=== PATIENT | male | born 1980 | race Caucasian/White ===

== ENCOUNTER 2017-03-05 15:58 | Emergency (ER) | payer OTHER ==
[~2017-03-05] VITALS: Ht 177.8 cm; Wt 92.0 kg
[2017-03-05 16:04] VITALS: BP 128/79; PULSE 83; RESP 18; TEMP 97.6; O2SAT 98
--- NOTE | 2017-03-05 16:21 | PD ---
HPI Chief Complaint: Skin Problem Time Seen by Provider: 16:19 Travel History International Travel<30 days: No Contact w/Intl Traveler<30days: No Traveled to known affect area: No History of Present Illness HPI Patient is a 36 year old male presents to the ER for evaluation of left hand pain and swelling. Patient states he was working some metal when it came off a machine and hit him in the left hand on the dorsum near the thumb. States last tetanus was unknown. Denies fevers, denies IVDU, states the pain and swelling gradually worsening. he states that he swabbed his hand with alcohol yesterday and attempted to drain it himself with a razor blade and had minimal drainage. PFSH Past Medical History Medical History: Denies Significant Hx Diminished Hearing: No Tetanus Vaccination: Unknown Influenza Vaccination: No Past Surgical History Surgical History: No Previous Surgery Social History Alcohol Use: No Tobacco Use: Yes (1 PPD) Substance Use: No Allergies-Medications (Allergen,Severity, Reaction): Coded Allergies: No Known Allergies (Unverified , 03/05/17) Reported Meds & Prescriptions Reported Meds & Active Scripts Active Ultram (Tramadol HCl) 50 Mg Tab 50 Mg PO Q6H PRN Bactrim DS (Sulfamethoxazole-Trimethoprim) 800-160 Mg Tab 1 Tab PO BID Keflex (Cephalexin) 500 Mg Cap 500 Mg PO Q6H 7 Days Review of Systems Except as stated in HPI: all other systems reviewed are Neg Physical Exam Narrative GENERAL: WD/WN and in nad. SKIN: Warm and dry. THere is a grape sized abscess to the left hand dorsum and the base of the fifth metacarpal. Non-pulsatile, excoriation present where patient describes he cut himself. minimal surrounding cellulitis and non specific edema of the dorsum of the hand only. HEAD: Normocephalic. EYES: No scleral icterus. No injection or drainage. NECK: Supple, trachea midline. No JVD or lymphadenopathy. CARDIOVASCULAR: Regular rate and rhythm without murmurs, gallops, or rubs. RESPIRATORY: Breath sounds equal bilaterally. No accessory muscle use. GASTROINTESTINAL: Abdomen soft, non-tender, nondistended. MUSCULOSKELETAL: No cyanosis, or edema. ROM intact but somewhat tender. BACK: Nontender without obvious deformity. No CVA tenderness. Data Data Last Documented VS Vital Signs Date Time Temp Pulse Resp B/P Pulse Ox O2 Delivery O2 Flow Rate FiO2 03/05/17 16:04 97.6 83 18 128/79 98 Orders Wrist, Complete ([id number]) (03/05/17 ) Lidocaine 1% Inj (50 Ml) (Xylocaine 1% I (03/05/17 16:30) [id number] (Booster) Inj (Boostrix (03/05/17 16:30) Lidocaine Pf 1% Inj (Xylocaine-Mpf 1% In (03/05/17 16:30) Lidocai-Epi 1%-1:100,000 Inj (Xylocaine- (03/05/17 17:00) Acetaminophen (Tylenol) (03/05/17 17:30) Wound Culture And Gram Stain (03/05/17 17:28) MDM Medical Decision Making Medical Screen Exam Complete: Yes Emergency Medical Condition: Yes Differential Diagnosis Abscess, cellulitis, retained FB Narrative Course Patient roomed in ED, xray shows no FB and no bony abnormality, abscess is amenable to ER drainage. Drained by Christen HINES. pain medicine given and patient counseled on s/s that suggest worsening and return to ED criteria and symptomatic management. Diagnosis Primary Impression: Abscess of hand, left Med/Other Pt SpecificInfo: Prescription(s) given Scripts Tramadol (Ultram)50 Mg Tab50 Mg PO Q6H PRN (PAIN) #10 TAB Ref 0 Prov:Migel Monterroso MD 03/05/17 Sulfamethoxazole-Trimethoprim (Bactrim DS)800-160 Mg Tab1 Tab PO BID #14 TAB Ref 0 Prov:Migel Monterroso MD 03/05/17 Cephalexin (Keflex)500 Mg [id number] Mg PO Q6H 7 Days Ref 0 Prov:Migel Monterroso MD 03/05/17 Disposition: 01 DISCHARGE HOME Condition: Stable Miegl Monterroso MD Mar 05, 2017 16:21
[2017-03-05] MEDS ORDERED: LIDOCAINE HCL 1% 50 ML VIAL INFIL ONE (16:30)
[2017-03-05] MEDS ORDERED: DIPHTH/TETANUS/ACEL PERTUSSIS (BOOSTER) 0.5 ML VIAL/PFS IM ONE (16:30)
[2017-03-05] MEDS ORDERED: LIDOCAINE HCL 1% PF 30 ML VIAL INFIL ONE (16:30)
[2017-03-05] MEDS ORDERED: LIDOCAINE 1%/EPINEPHrine 1:100,000 SOLN 20 ML VIAL INFIL ONE (16:45)
[2017-03-05] MEDS ORDERED: LIDOCAINE 1%/EPINEPHrine 1:100,000 SOLN 30 ML VIAL INFIL ONE (17:00)
[2017-03-05] MEDS ORDERED: BACT800T5 PO (17:24)
[2017-03-05] MEDS ORDERED: CEPH-460 PO (17:24)
--- NOTE | 2017-03-05 17:24 | PD ---
Physical Exam Narrative See full H&P by Dr. Monterroso. I performed incision and drainage of abscess to left hand. 1.5 cm abscess to left hand with fluctuant center. Area was prepped with Betadine. Infiltrated with 1 mL of 1% lidocaine. Incised with #11 blade. A small amount of purulent drainage expressed. Patient tolerated procedure well. Wound culture obtained. Data Data Last Documented VS Vital Signs Date Time Temp Pulse Resp B/P Pulse Ox O2 Delivery O2 Flow Rate FiO2 03/05/17 16:04 97.6 83 18 128/79 98 Orders Wrist, Complete ([id number]) (03/05/17 ) Lidocaine 1% Inj (50 Ml) (Xylocaine 1% I (03/05/17 16:30) [id number]-Tzfufs (Booster) Inj (Boostrix (03/05/17 16:30) Lidocaine Pf 1% Inj (Xylocaine-Mpf 1% In (03/05/17 16:30) Lidocai-Epi 1%-1:100,000 Inj (Xylocaine- (03/05/17 17:00) MDM Supervised Visit with RUDY: Yes Scripts No Active Prescriptions or Reported Meds Christen Townsend Mar 05, 2017 17:24
[2017-03-05] MEDS ORDERED: ACETAMINOPHEN 325 MG TAB PO ONE (17:30)
--- NOTE | 2017-03-05 17:30 | RADRPT ---
EXAM DATE/TIME: 03/05/2017 16:51 [facility] COMPARISON: No previous studies available for comparison. INDICATIONS : Evaluate for foreign body. MEDICAL HISTORY : None. SURGICAL HISTORY : None. ENCOUNTER: Initial ACUITY: 1 week PAIN SCORE: 5/10 LOCATION: Left wrist. FINDINGS: Three view examination of the left wrist demonstrates no soft tissue swelling, dislocation, or fractu re. The carpal bones are in normal alignment. The joint spaces are maintained. Bony mineralization is normal. There is no evidence of radiodense foreign body CONCLUSION: Unremarkable examination of the left wrist. Brodie Zhong MD on March 05, 2017 at 17:27 Board Certified Radiologist. This report was verified electronically.
[2017-03-05] MEDS ORDERED: ULTR50TA5 PO (17:33)
== END 2017-03-05 17:50 | disposition home or self-care (01) ==
LOC: PHED 15:58
DX: L02.512 Cutaneous abscess of left hand (principal)
CPT/HCPCS: 10060; 73110; 86403; 87070; 87186; 87205; 90471; 90715

== ENCOUNTER 2017-03-30 06:50 | Emergency (ER) | payer OTHER ==
[~2017-03-30] VITALS: Ht 177.8 cm; Wt 91.8 kg
[~2017-03-30 06:50] MED LIST: BACT800T5 PO; CEPH-460 PO; ULTR50TA5 PO
[2017-03-30 06:54] VITALS: BP 135/63; PULSE 76; RESP 18; TEMP 98.4; O2SAT 98
[2017-03-30] MEDS ORDERED: METH10TA PO (07:08)
[2017-03-30] MEDS ORDERED: SODIUM CHLOR 0.9% 1000 ML INJ 1,000 ML IV ONE ×2 (07:30)
--- NOTE | 2017-03-30 07:36 | PD ---
HPI Chief Complaint: Dizziness Time Seen by Provider: 07:20 Travel History International Travel<30 days: No Contact w/Intl Traveler<30days: No Traveled to known affect area: No History of Present Illness HPI 36 years old male complaining of dizziness and nausea vomiting. Patient states the symptoms started yesterday evening and has been intermittent since then. Patient also complaint headache started yesterday and got better this morning. Patient denies any visual change. Patient denies any neck pain. Patient denies any chest pain or shortness of breath. Patient denies abdominal pain. Patient denies any fever chills. Patient denied dysuria or frequency. Patient' s on methadone daily. Patient denies any alcohol or illicit drug abuse. Patient states that he has been working outside in the heat all day for the past 12 days. Patient states that he has been drinking water at work. 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 Reported Meds & Prescriptions Reported Meds & Active Scripts Active Reported Methadone (Methadone HCl) 10 Mg Tab 30 Mg PO DAILY Review of Systems General / Constitutional: No: Fever Eyes: No: Visual changes HENT: Positive: Lightheadedness, No: Headaches Cardiovascular: No: Chest Pain or Discomfort Respiratory: No: Shortness of Breath Gastrointestinal: Positive: Nausea, Vomiting, No: Abdominal Pain Genitourinary: No: Dysuria Musculoskeletal: No: Pain Skin: No Rash Neurologic: No: Weakness Psychiatric: No: Depression Endocrine: No: Polydipsia Hematologic/Lymphatic: No: Easy Bruising Physical Exam Narrative GENERAL: Well-nourished, well-developed patient. SKIN: Focused skin assessment warm/dry. HEAD: Normocephalic. EYES: No scleral icterus. No injection or drainage. Pupils 3 mm equal reactive. NECK: Supple, trachea midline. No JVD or lymphadenopathy. CARDIOVASCULAR: Regular rate and rhythm without murmurs, gallops, or rubs. RESPIRATORY: Breath sounds equal bilaterally. No accessory muscle use. GASTROINTESTINAL: Abdomen soft, non-tender, nondistended. MUSCULOSKELETAL: No cyanosis, or edema. BACK: Nontender without obvious deformity. No CVA tenderness. Neurologic exam: Patient is awake and alert oriented 3. No obvious focal neurological deficit. Data Data Last Documented VS Vital Signs Date Time Temp Pulse Resp B/P Pulse Ox O2 Delivery O2 Flow Rate FiO2 03/30/17 07:48 98 Room Air 03/30/17 06:54 98.4 76 18 135/63 Orders Sodium Chlor 0.9% 1000 Ml Inj (Ns 1000 M (03/30/17 07:30) Sodium Chlor 0.9% 1000 Ml Inj (Ns 1000 M (03/30/17 07:30) Ondansetron Inj (Zofran Inj) (03/30/17 07:45) Complete Blood Count With Diff (03/30/17 07:31) Comprehensive Metabolic Panel (03/30/17 07:31) Iv Access Insert/Monitor (03/30/17 07:31) Ecg Monitoring (03/30/17 07:31) Oximetry (03/30/17 07:31) Drug Screen, Random Urine (03/30/17 07:31) Creatine Kinase (Cpk) (03/30/17 07:31) Ct Brain W/O Iv Contrast(Rout) (03/30/17 07:34) Labs Laboratory Tests Test 03/30/17 07:40 White Blood Count 9.7 TH/MM3 Red Blood Count 5.34 MIL/MM3 Hemoglobin 16.3 GM/DL Hematocrit 46.8 % Mean Corpuscular Volume 87.6 FL Mean Corpuscular Hemoglobin 30.6 PG Mean Corpuscular Hemoglobin 34.9 % Concent Red Cell Distribution Width 12.7 % Platelet Count 334 TH/MM3 Mean Platelet Volume 7.8 FL Neutrophils (%) (Auto) 64.9 % Lymphocytes (%) (Auto) 24.2 % Monocytes (%) (Auto) 8.5 % Eosinophils (%) (Auto) 1.2 % Basophils (%) (Auto) 1.2 % Neutrophils # (Auto) 6.3 TH/MM3 Lymphocytes # (Auto) 2.4 TH/MM3 Monocytes # (Auto) 0.8 TH/MM3 Eosinophils # (Auto) 0.1 TH/MM3 Basophils # (Auto) 0.1 TH/MM3 CBC Comment DIFF FINAL Differential Comment Sodium Level 131 MEQ/L Potassium Level 3.9 MEQ/L Chloride Level 98 MEQ/L Carbon Dioxide Level 21.4 MEQ/L Anion Gap 12 MEQ/L Blood Urea Nitrogen 39 MG/DL Creatinine 2.00 MG/DL Estimat Glomerular Filtration 38 ML/MIN Rate Random Glucose 162 MG/DL Calcium Level 9.0 MG/DL Total Bilirubin 0.7 MG/DL Aspartate Amino Transf 16 U/L (AST/SGOT) Alanine Aminotransferase 30 U/L (ALT/SGPT) Alkaline Phosphatase 82 U/L Total Creatine Kinase 258 U/L Total Protein 8.5 GM/DL Albumin 4.1 GM/DL MDM Medical Decision Making Medical Screen Exam Complete: Yes Emergency Medical Condition: Yes Interpretation(s) Last Impressions Head CT 03/30/17 0734 Signed Impressions: Service Date/Time: Sunday, March 30, 2017 07:43 - CONCLUSION: No acute intracranial disease. Lokesh Colindres MD 9:35 AM. CBC within normal limit. Sodium 131. BUN 39. Creatinine 2.0. GFR 38. Differential Diagnosis Differential diagnosis including dehydration, heat exhaustion, heat stroke, tension headache, cluster headache, migraine headache, rhabdomyolysis. Narrative Course 36 years old male with headache, dizziness, nausea vomiting. Patient has been working outside in the heat for the past 12 days. Normal saline solution 2 L IV bolus. Zofran 4 mg IV. 9:40 AM. Reexamination patient's feeling much better. Diagnosis Primary Impression: Heat exhaustion Qualified Code: T67.5XXA - Heat exhaustion, initial encounter Additional Impression: Renal insufficiency Patient Instructions: General Instructions Additional Instructions: Encourage by mouth fluid. Follow-up with personal physician. Return if worse. Med/Other Pt SpecificInfo: No Change to Meds Disposition: 01 DISCHARGE HOME Condition: Stable Jeanmarie Gonzalez MD Mar 30, 2017 07:36
[2017-03-30] MEDS ORDERED: ONDANSETRON HCL 4 MG/2 ML VIAL IV PUSH ONE (07:45)
[2017-03-30 07:48] VITALS: O2SAT 98
[2017-03-30 08:01] LABS: AUTOMATED NEUTROPHIL # 6.3 TH/MM3 (1.8-7.7); BASOPHIL # 0.1 TH/MM3 (0-0.2); BASOPHIL % 1.2 % (0.0-2.0); EOSINOPHIL # 0.1 TH/MM3 (0-0.4); EOSINOPHIL % 1.2 % (0.0-4.0); HEMATOCRIT 46.8 % (39.0-51.0); HEMO FLAGS DIFF FINAL; LYMPH % 24.2 % (9.0-44.0); LYMPHOCYTE # 2.4 TH/MM3 (1.0-4.8); MEAN CELL VOLUME 87.6 FL (80.0-100.0); MEAN CORPUSCULAR HEMOGLOBIN 30.6 PG (27.0-34.0); MEAN CORPUSCULAR HGB CONC 34.9 % (32.0-36.0); MONO % 8.5 % (0.0-8.0); NEUT % 64.9 % (16.0-70.0); PLATELET COUNT 334 TH/MM3 (150-450); RED BLOOD COUNT 5.34 MIL/MM3 (4.50-5.90); RED CELL DISTRIBUTION WIDTH 12.7 % (11.6-17.2); WHITE BLOOD COUNT 9.7 TH/MM3 (4.0-11.0)
[2017-03-30 08:02] LABS: CHLORIDE 98 MEQ/L (98-107); POTASSIUM 3.9 MEQ/L (3.5-5.1); SODIUM (NA) 131 MEQ/L (136-145)
--- NOTE | 2017-03-30 08:02 | RADRPT ---
EXAM DATE/TIME: 03/30/2017 07:43 [facility] COMPARISON: No previous studies available for comparison. INDICATIONS : Cephalgia. Dizziness. Nausea. RADIATION DOSE: 66.59 CTDIvol (mGy) MEDICAL HISTORY : None SURGICAL HISTORY : None. ENCOUNTER: Initial ACUITY: 1 day PAIN SCALE: 1/10 LOCATION: cranial TECHNIQUE: Multiple contiguous axial images were obtained of the head. Using automated exposure control and adj ustment of the mA and/or kV according to patient size, radiation dose was kept as low as reasonably a chievable to obtain optimal diagnostic quality images. DICOM format image data is available electro nically for review and comparison. FINDINGS: CEREBRUM: The ventricles are normal for age. No evidence of midline shift, mass lesion, hemorrhage or acute in farction. No extra-axial fluid collections are seen. POSTERIOR FOSSA: The cerebellum and brainstem are intact. The 4th ventricle is midline. The cerebellopontine angle i s unremarkable. EXTRACRANIAL: The visualized portion of the orbits is intact. SKULL: The calvaria is intact. No evidence of skull fracture. CONCLUSION: No acute intracranial disease. Lokesh Colindres MD on March 30, 2017 at 7:59 Board Certified Radiologist. This report was verified electronically.
[2017-03-30 08:06] LABS: ANION GAP 12 MEQ/L (5-15); BICARBONATE 21.4 MEQ/L (21.0-32.0); BLOOD UREA NITROGEN 39 MG/DL (7-18)
[2017-03-30 08:09] LABS: ALT (GPT) 30 U/L (12-78); AST (GOT) 16 U/L (15-37); GLOMERULAR FILTRATION RATE 38 ML/MIN (>89)
[2017-03-30 08:11] LABS: TOTAL BILIRUBIN ADULT 0.7 MG/DL (0.2-1.0)
[2017-03-30 08:12] LABS: ALKALINE PHOSPHATASE 82 U/L (45-117); CREATINE KINASE 258 U/L (39-308)
[2017-03-30 09:58] VITALS: BP 132/56
== END 2017-03-30 10:06 | disposition home or self-care (01) ==
LOC: PHED 06:50
DX: T67.5XXA Heat exhaustion, unspecified, initial encounter (principal); N28.9 Disorder of kidney and ureter, unspecified
CPT/HCPCS: 70450; 80053; 82550; 85025; 96361; 96374; 99285; J2405; J7030